=== PATIENT | female | born 1980 | race Caucasian/White ===

== ENCOUNTER 2019-01-24 08:55 | Emergency (ER) | payer MEDICAID, OTHER ==
[~2019-01-24] VITALS: Ht 170.2 cm; Wt 93.2 kg
[~2019-01-24 08:55] MED LIST: NO HOME MEDS
[2019-01-24 09:06] VITALS: BP 141/92
[2019-01-24] MEDS ORDERED: ketorolac tromethamine 15mg/ml inj. IM ONE (09:45)
[2019-01-24] MEDS ORDERED: orphenadrine citrate 60mg/2ml inj. IM ONE (09:45)
[2019-01-24] MEDS ORDERED: IBUP-1985 PO (10:59)
[2019-01-24] MEDS ORDERED: METH-360 PO (10:59)
== END 2019-01-24 11:23 | disposition home or self-care (01) ==
LOC: ER 08:55
DX: M54.5 Low back pain (principal)
CPT/HCPCS: 72100; 96372; 99283; J1885; J2360

== ENCOUNTER 2019-07-31 19:48 | Emergency (ER) | payer MEDICAID, OTHER ==
[~2019-07-31] VITALS: Ht 170.2 cm; Wt 98.3 kg
[~2019-07-31 19:48] MED LIST changes: +IBUP-1985 PO; +METH-360 PO
[2019-07-31] MEDS ORDERED: normal saline 1000ML IV soln IVB ONE (20:15)
[2019-07-31] MEDS ORDERED: morphine 4 MG/ML inj SYRINge IV ONE (20:15)
[2019-07-31] MEDS ORDERED: ondansetron/PF 4mg/2ml inj IV ONE (20:15)
[2019-07-31 20:30] LABS: CLARITY,URINE CLEAR (Clear); COLOR,URINE YELLOW (Yellow); GLUCOSE, URINE NEGATIVE (Neg); KETONES,URINE NEGATIVE (Neg); LEUKOCYTE ESTERASE ,URINE NEGATIVE (Neg); NITRITES, URINE NEGATIVE (Neg); OCCULT BLOOD,URINE TRACE-LYSED (Neg); PROTEIN,URINE NEGATIVE (Neg); UROBILINOGEN,URINE 0.2 E.U/dL (0.2-1.0)
[2019-07-31 20:32] LABS: UA COLLECTION TYPE NON-SPECIFIED
[2019-07-31 20:37] LABS: AMORPHOUS PHOSPHATES 1+; BACTERIA,URINE NONE SEEN /HPF (Neg); MUCUS STRANDS NONE SEEN /LPF (Neg); RBC,URINE 0-2 /HPF (0-2); SQUAMOUS EPITHELIAL CELL,UR FEW /LPF (FEW); WBC,URINE NONE SEEN /HPF (0-4)
[2019-07-31 20:43] LABS: BASOPHILS # (AUTO) 0.1 X10'3 (0-0.2); BASOPHILS % (AUTO) 0.9 % (0-1); EOSINOPHILS # (AUTO) 0.3 X10'3 (0-0.9); EOSINOPHILS % (AUTO) 2.1 % (0-6); HEMATOCRIT 40.6 % (35.0-45.0); HEMOGLOBIN 14.2 g/dl (12.0-16.0); LYMPHOCYTES % (AUTO) 28.8 % (21-51); MEAN CORPUSCULAR HEMOGLOBIN 30.3 PG (27.0-31.0); MEAN CORPUSCULAR HGB CONC 34.8 g/dL (33.0-36.5); MEAN CORPUSCULAR VOLUME 86.9 FL (78-98); MEAN PLATELET VOLUME 9.3 FL (7.4-10.4); MONOCYTES # (AUTO) 1.2 X10'3 (0-0.9); MONOCYTES % (AUTO) 8.8 % (2-12); NEUTROPHILS # (AUTO) 8.2 X10'3 (1.8-7.7); NEUTROPHILS % (AUTO) 59.4 % (42-75); PLATELET COUNT 281 X10'3 (140-440); RED BLOOD COUNT 4.68 X10'6 (4.20-5.60); RED CELL DISTRIBUTION WIDTH 14.9 % (11.5-14.5); WHITE BLOOD COUNT 13.8 X10'3 (4.5-11.0)
[2019-07-31 20:46] LABS: URINE HCG NEGATIVE (NEG)
[2019-07-31 20:53] LABS: ALANINE AMINOTRANSFERASE 31 U/L (12-78); ALBUMIN 3.7 G/DL (3.4-5.0); ALBUMIN/GLOBULIN RATIO 0.9 (1.1-1.5); ALKALINE PHOSPHATASE 112 IU/L (46-116); ANION GAP 7 (8-16); ASPARTATE AMINO TRANSFERASE 20 U/L (10-37); BILIRUBIN,TOTAL 0.2 MG/DL (0.1-1.0); BLOOD UREA NITROGEN 6 MG/DL (7-18); BUN/CREATININE RATIO 9.2 (6.6-38.0); CALCIUM 9.2 MG/DL (8.5-10.1); CHLORIDE 102 MMOL/L (99-107); CREATININE 0.65 MG/DL (0.40-0.90); GLUCOSE 107 MG/DL (70-104); POTASSIUM 3.5 MMOL/L (3.5-5.1); SODIUM 139 MMOL/L (135-145); TOTAL PROTEIN 7.7 G/DL (6.4-8.2); eGFR > 90 ML/MIN
[2019-07-31] MEDS ORDERED: metoclopramide 5 mg/ml inj IV ONE (21:40)
[2019-07-31] MEDS ORDERED: METR500T PO (21:41)
[2019-07-31] MEDS ORDERED: HYDR-3965 PO (21:41)
[2019-07-31] MEDS ORDERED: CIPR-259 PO (21:41)
[2019-07-31] MEDS ORDERED: ONDA4TAB6 PO (21:41)
[2019-07-31 22:08] VITALS: BP 148/84
== END 2019-07-31 22:04 | disposition home or self-care (01) ==
LOC: ER 19:49
DX: K52.9 Noninfective gastroenteritis and colitis, unspecified (principal); Z79.899 Other long term (current) drug therapy
CPT/HCPCS: 36415; 74176; 80053; 81001; 81025; 83605; 85025; 96361; 96374; 96375; 99284; J2270; J2405; J2765; J7030

== ENCOUNTER 2022-02-26 19:13 | Emergency (ER) | payer MEDICAID ==
[~2022-02-26] VITALS: Ht 170.2 cm; Wt 84.1 kg
[~2022-02-26 19:13] MED LIST changes: +ONDA4TAB6 PO
[2022-02-26 20:51] LABS: HCG SERUM QL NEGATIVE
[2022-02-26] MEDS ORDERED: ketorolac trometh. 30mg/ml inj. IM ONE (23:20)
[2022-02-26 23:31] VITALS: BP 138/85
== END 2022-02-26 23:32 | disposition home or self-care (01) ==
LOC: ER 19:14
DX: M54.89 Other dorsalgia (principal); M54.2 Cervicalgia; Z79.899 Other long term (current) drug therapy; V87.7XXA Person injured in collision between other specified motor vehicles (traffic), initial encounter; Y93.89 Activity, other specified; Y92.89 Other specified places as the place of occurrence of the external cause; Y99.8 Other external cause status
CPT/HCPCS: 36415; 72125; 72128; 72131; 84703; 96372; 99284; J1885